=== PATIENT | male | born 2000 | race African-American/Black ===

== ENCOUNTER 2021-08-13 19:20 | Emergency (ER) | payer OTHER ==
[~2021-08-13] VITALS: Ht 188 cm; Wt 111.1 kg
[2021-08-13 19:25] VITALS: BP 115/79
--- NOTE | 2021-08-13 19:25 | NUR ---
TO BED AMBULATORY
--- NOTE | 2021-08-13 19:41 | NUR ---
21 YO/M BIB SELF W C/O OF L ANKLE PAIN 2/10 WHEN STAYING STILL ACHEING WORSENING WHEN STANDING OR UPON MOVEMENT + RADIATING TO L FOOT X3.5 HOURS S/P ROLLING L ANKLE OUTWARDS WHEN PLAYING SOCCER TODAY. + SENSATION BL FEET, +2 PEDAL PULSES, + ROM. PT LAYING IN BED LOCKED IN LOWEST POSITION W X1 SIDERAIL UP. BREATHING EVEN AND UNLABORED. NAD NOTED, WILL CONTINUE TO MONITOR. PMH:DENIES NKA
[2021-08-13] MEDS ORDERED: IBUP-2213 PO (19:54)
[2021-08-13] MEDS: IBUPROFEN 600 MG TAB PO ONE (20:01)
[2021-08-13 20:20] VITALS: BP 115/79
--- NOTE | 2021-08-13 20:20 | NUR ---
Patient discharged with v/s stable. Written and verbal after care instructions given and explained. Patient alert, oriented and verbalized understanding of instructions. Ambulatory with steady gait W USE OF CRUTCHES. All questions addressed prior to discharge. ID band removed. Patient advised to follow up with PMD. Rx of IBUPROFEN given. Patient educated on indication of medication including possible reaction and side effects. Opportunity to ask questions provided and answered.
== END 2021-08-13 20:20 | disposition home or self-care (01) ==
LOC: MED 19:20
DX: S93.402A Sprain of unspecified ligament of left ankle, initial encounter (principal); X50.0XXA Overexertion from strenuous movement or load, initial encounter; Y93.89 Activity, other specified; Y92.89 Other specified places as the place of occurrence of the external cause; Y99.8 Other external cause status
CPT/HCPCS: 29515; 73610; 99283; Q0092